=== PATIENT | female | born 1955 | race Caucasian/White ===

== ENCOUNTER 2018-02-28 08:00 | Inpatient (IN) | payer MEDICARE, OTHER ==
[2018-03-31] MEDS ORDERED: Sodium Chloride 0.9% 10 ML Syringe FLUSH PRN (07:00)
[2018-03-31] MEDS ORDERED: Lactated Ringers 1,000 ML IV SCH (07:00)
[2018-03-31] MEDS ORDERED: Lidocaine 1%/Sod Bicarbonate in NS 8.4% 1 ML Syringe IDERM PRN (07:00)
[2018-03-31] MEDS ORDERED: Magnesium Hydroxide 400 MG/5 ML Susp 30 ML Cup PO PRN (07:05)
[2018-03-31] MEDS ORDERED: Ketorolac 15 MG/ML SDV IVPUSH PRN (07:05)
[2018-03-31] MEDS ORDERED: Bisacodyl 5 MG Tab PO PRN (07:05)
[2018-03-31] MEDS ORDERED: Morphine 2 MG/ML Syringe IVPUSH PRN (07:05)
[2018-03-31] MEDS ORDERED: Sennosides 8.6 MG Tab PO PRN (07:05)
[2018-03-31] MEDS ORDERED: Naloxone 0.4 MG/ML SDV IVPUSH PRN (07:05)
[2018-03-31] MEDS ORDERED: Acetaminophen/oxyCODONE 325-5 MG Tab PO PRN (07:05)
[2018-03-31] MEDS ORDERED: Scopolamine 1.5 MG Transdermal Patch TRDERM ONE (09:05)
[2018-03-31] MEDS ORDERED: Pregabalin 25 MG Cap PO SCH ×2 (09:30→11:30)
[2018-03-31] MEDS ORDERED: oxyCODONE ER 10 MG TAB.ER PO SCH ×2 (09:30→11:30)
[2018-03-31] MEDS ORDERED: Acetaminophen 325 MG Tab PO SCH ×2 (09:30→11:30)
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
[2018-03-31] MEDS ORDERED: Vancomycin 1 GM SDV ONE (10:42)
[2018-03-31] MEDS ORDERED: ceFAZolin 1 GM Vial ONE ×2 (10:42→10:46)
[2018-03-31] MEDS ORDERED: Iodine/Sodium Iodide 2% Tincture 30 ML Bottle ONE (10:42)
[2018-03-31] MEDS ORDERED: Bupivacaine 0.25% 30 ML SDV ONE (10:42)
[2018-03-31] MEDS ORDERED: Propofol 200 MG/20 ML SDV ONE (10:47)
[2018-03-31] MEDS ORDERED: fentaNYL 100 MCG/2 ML SDV ONE (10:47)
[2018-03-31] MEDS ORDERED: Midazolam 1 MG/ML 2 ML SDV ONE (10:47)
[2018-03-31] MEDS ORDERED: Bupivacaine 0.75% 30 ML SDV ONE (10:48)
[2018-03-31] MEDS: Morphine 8 MG, EPINEPHrine 0.3 MG, Cefuroxime 750 MG, Ketorolac 30 MG, Sodium Chloride ... ONE ×10 (13:35→17:18)
[2018-03-31] MEDS ORDERED: Ketorolac 30 MG/ML SDV ONE (13:38)
[2018-03-31] MEDS ORDERED: Ondansetron 4 MG/2 ML SDV ONE (13:38)
[2018-03-31] MEDS ORDERED: Lactated Ringers 1,000 ML ONE ×2 (13:57)
[2018-03-31] MEDS ORDERED: fentaNYL 100 MCG/2 ML SDV IVPUSH PRN (14:16)
[2018-03-31] MEDS ORDERED: HYDROmorphone 0.5 MG/0.5 ML Syringe IVPUSH PRN (14:16)
--- NOTE | 2018-03-31 14:16 | PCM.POSTAN ---
POST ANESTHESIA ASSESSMENT - MENTAL STATUS Mental Status: Alert, Oriented - VITAL SIGNS Pulse Rate: 80 SaO2: 95 Resp Rate: 14 Blood Pressure: 90/48 Temperature: 36.0 C - RESPIRATORY Respiratory Status: Respiratory Rate WNL, Airway Patent, O2 Saturation Stable, Supplemental Oxygen - CARDIOVASCULAR CV Status: Pulse Rate WNL, Blood Pressure Stable - GASTROINTESTINAL GI Status: No Symptoms - PAIN Pain Score: 0 - POST OP HYDRATION Hydration Status: Adequate & Stable
[2018-03-31] MEDS ORDERED: SUMAtriptan 50 MG Tab PO PRN (14:22)
--- NOTE | 2018-03-31 14:27 | PCM.OPNOTE ---
- General Post-Op/Procedure Note Date of Surgery/Procedure: 03/31/18 Operative Procedure(s): left total knee arthoplasty Pre Op Diagnosis: left knee osteoarthrosis Post-Op Diagnosis: Same Anesthesia Technique: Local, MAC, Spinal Primary Surgeon: Noble Munguia Anesthesia Provider: Terri Tolbert Treasury Accountant: Trinity Miner Treasury Accountant: Salome Mac EBL in mLs: 300 Complications: None Condition: Good Free Text/Narrative:: size 4 size 3 3 9mm 29x9
[2018-03-31] MEDS ORDERED: Ropivacaine 0.5% 5 MG/ML 30 ML SDV ONE (15:00)
[2018-03-31] MEDS ORDERED: EPINEPHrine 1 MG/ML SDV ONE (15:00)
--- NOTE | 2018-03-31 15:47 | CR ---
Left knee: AP and lateral views left knee were obtained. Comparison: No previous study. Knee prosthesis is seen. Soft tissue air is noted from the surgical procedure. Prosthetic components are aligned. Underlying bony structures are intact. Impression: 1. Satisfactory postop radiographic appearance recently placed left knee prosthesis. Diagnostic code #2
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
--- NOTE | 2018-03-31 17:31 | PCM.SN ---
- Free Text/Narrative Note: Left selective femoral nerve block at the adductor canal for post-procedure pain control Time Out: 1504 Start: 1506 End: 1510 Chart reviewed. Consent signed. Questions answered. Appropriate monitors applied. Time out performed. Left mid-shaft femur evaluated with ultrasound. Scanning medially femur, I was able to identify the femoral artery in the adductor canal. The saphenous nerve was lateral to the artery. The skin was prepped lateral to the ultrasound probe with chlorahexadine. The 21ga 4 insulated block needle was inserted under direct ultrasound guidance into the adductor canal. 20mL of 0.5% ropivacaine with 1:200,000 epinephrine was injected cirmcumferentially about the nerve with intermittent negative aspiration every 5mL. Patient tolerated the procedure well. See pictures on progress note and vital signs on nurses notes. Block completed postoperatively. Jaya Guerra CRNA
[2018-03-31] MEDS: Ondansetron 4 MG/2 ML SDV IVPUSH PRN (17:41)
[2018-03-31] MEDS: ceFAZolin 2 GM in Premix Bag 1 BAG IV SCH (21:55)
[2018-03-31] MEDS: Famotidine 20 MG Tab PO SCH (21:55)
[2018-03-31] MEDS: Docusate Sodium 100 MG Cap PO SCH (21:55)
[2018-04-01] MEDS: ceFAZolin 2 GM in Premix Bag 1 BAG IV SCH ×2 (04:22→12:11)
--- NOTE | 2018-04-01 07:51 | PCM.CONSN ---
- General Info Date of Service: 04/01/18 Admission Dx/Problem (Free Text): Admission Diagnosis/Problem Admission Diagnosis/Problem Osteoarthritis of knee Subjective Update: In to see Gini. She is doing well overall. She reports that her highest pain score was a 5/10 today for which she received Percocet. She is tolerating the pain medications. She does endorse some nausea but no vomiting. Occasional dizziness but she does report she hasn't had much to eat/drink since surgery. She reports sensation is intact for her LLE. Denies chest pain, dyspnea, dysuria. Functional Status: Reports: Pain Controlled, Tolerating Diet, Urinating - Review of Systems General: Reports: No Symptoms, Appetite (decreased post-op ). Denies: Fever, Weakness HEENT: Reports: No Symptoms Pulmonary: Reports: No Symptoms. Denies: Shortness of Breath, Cough Cardiovascular: Reports: No Symptoms. Denies: Chest Pain, Palpitations, Edema Gastrointestinal: Reports: No Symptoms, Nausea. Denies: Abdominal Pain, Constipation, Diarrhea, Vomiting Genitourinary: Reports: No Symptoms. Denies: Dysuria, Frequency Musculoskeletal: Reports: Other (knee pain s/p left TKA POD #1 ) Skin: Reports: No Symptoms Neurological: Reports: Dizziness (mild ). Denies: Confusion, Headache, Numbness , Tingling Psychiatric: Reports: No Symptoms. Denies: Confusion, Depression - Patient Data Vitals - Most Recent: Last Vital Signs Temp 97.7 F 04/01/18 04:34 Pulse 73 04/01/18 04:34 Resp 16 04/01/18 04:34 BP 105/73 04/01/18 04:34 Pulse Ox 96 04/01/18 07:05 Weight - Most Recent: 154 lb 14.4 oz I&O - Last 24 Hours: Intake & Output 03/31/18 04/01/18 04/01/18 22:59 06:59 14:59 Intake Total 440 130 Output Total 500 Balance 440 -370 Lab Results Last 24 Hours: Laboratory Results - last 24 hr 04/01/18 Range/Units 06:20 WBC 8.00 (3.98-10.04) K/mm3 RBC 3.89 L (3.98-5.22) M/mm3 Hgb 11.4 (11.2-15.7) gm/L Hct 36.2 (34.1-44.9) % MCV 93.1 (79.4-94.8) fl MCH 29.3 (25.6-32.2) pg MCHC 31.5 L (32.2-35.5) g/dl RDW Std Deviation 49.0 H (36.4-46.3) fL Plt Count 236 (182-369) K/mm3 MPV 10.3 (9.4-12.3) fl Med Orders - Current: Current Medications Aspirin (Ecotrin) 325 mg PO BID [facility] Bisacodyl (Dulcolax) 5 mg PO DAILY PRN PRN Reason: Constipation Calcium Carbonate/Glycine (Calcium Carbonate) 1,200 mg PO DAILY [facility] Cholecalciferol (Vitamin D3) 5,000 unit PO DAILY [facility] Cyclobenzaprine HCl (Flexeril) 10 mg PO TID PRN PRN Reason: Spasms Docusate Sodium (Colace) 100 mg PO BID [facility] Last Admin: 03/31/18 21:55 Dose: 100 mg Famotidine (Pepcid) 20 mg PO Q12H [facility] Last Admin: 03/31/18 21:55 Dose: 20 mg Cefazolin Sodium/Dextrose 2 gm (/ Premix) 50 mls @ 100 mls/hr IV Q8H [facility] Stop: 04/01/18 12:59 Last Admin: 04/01/18 04:22 Dose: 100 mls/hr Ketorolac Tromethamine (Toradol) 15 mg IVPUSH Q6H PRN PRN Reason: Pain Magnesium Hydroxide (Milk Of Magnesia) 30 ml PO BID PRN PRN Reason: Constipation Magnesium Oxide (Magnesium Oxide) 400 mg PO DAILY [facility] Morphine Sulfate (Morphine) 2 mg IVPUSH Q2H PRN PRN Reason: Breakthrough Pain Naloxone HCl (Narcan) 0.1 mg IVPUSH Q5M PRN PRN Reason: Oversedation Ondansetron HCl (Zofran) 4 mg IVPUSH Q6H PRN PRN Reason: Nausea/Vomiting Last Admin: 03/31/18 17:41 Dose: 4 mg Oxycodone/Acetaminophen (Percocet 325-5 Mg) 1 - 2 tab PO Q4H PRN PRN Reason: Pain Last Admin: 04/01/18 04:40 Dose: 1 tab Senna (Senna) 8.6 mg PO BID PRN PRN Reason: Constipation Sertraline HCl (Zoloft) 25 mg PO DAILY [facility] Sodium Chloride (Saline Flush) 10 ml FLUSH ASDIRECTED PRN PRN Reason: Keep Vein Open Spironolactone (Aldactone) 50 mg PO DAILY [facility] Sumatriptan Succinate (Imitrex) 100 mg PO ASDIRECTED PRN PRN Reason: migraines Discontinued Medications Acetaminophen (Tylenol) 975 mg PO ONETIME [facility] Stop: 03/31/18 09:31 Last Admin: 03/31/18 11:45 Dose: 975 mg Acetaminophen (Tylenol) 975 mg PO ONETIME [facility] Stop: 03/31/18 11:31 Bupivacaine HCl (Marcaine 0.25%) Confirm Administered Dose 30 ml .ROUTE .STK- MED ONE Stop: 03/31/18 10:43 Last Admin: 03/31/18 13:36 Dose: 30 ml Bupivacaine HCl (Sensorcaine-Mpf 0.75%) Confirm Administered Dose 30 ml .ROUTE .STK-MED ONE Stop: 03/31/18 10:49 Cefazolin Sodium (Ancef) Confirm Administered Dose 2 gm .ROUTE .STK-MED ONE Stop: 03/31/18 10:43 Last Admin: 03/31/18 13:29 Dose: 2 gm Cefazolin Sodium (Ancef) Confirm Administered Dose 2 gm .ROUTE .STK-MED ONE Stop: 03/31/18 10:47 Morphine Sulfate 8 mg/Epinephrine HCl 0.3 mg/Cefuroxime Sodium 750 mg/Ketorolac Tromethamine 30 mg/Sodium Chloride 27.9 ml 0 mg .XX ONETIME ONE Stop: 03/31/18 12:31 Last Admin: 03/31/18 17:18 Dose: Not Given Epinephrine HCl (Adrenalin) Confirm Administered Dose 1 mg .ROUTE .STK-MED ONE Stop: 03/31/18 15:01 Fentanyl (Sublimaze) Confirm Administered Dose 100 mcg .ROUTE .STK-MED ONE Stop: 03/31/18 10:48 Fentanyl (Sublimaze) 50 mcg IVPUSH Q5M PRN PRN Reason: pain Stop: 03/31/18 18:00 Hydromorphone HCl (Dilaudid) 0.5 mg IVPUSH ONETIME PRN PRN Reason: Pain (severe 7-10) Lactated Ringer's (Ringers, Lactated) 1,000 mls @ 125 mls/hr IV ASDIRECTED [facility] Last Admin: 03/31/18 10:05 Dose: 125 mls/hr Lactated Ringer's (Ringers, Lactated) Confirm Administered Dose 1,000 mls @ as directed .ROUTE .STK-MED ONE Stop: 03/31/18 13:58 Lactated Ringer's (Ringers, Lactated) Confirm Administered Dose 1,000 mls @ as directed .ROUTE .STK-MED ONE Stop: 03/31/18 13:58 Iodine (Iodine 2% Mild Tincture) Confirm Administered Dose 30 ml .ROUTE .STK- MED ONE Stop: 03/31/18 10:43 Last Admin: 03/31/18 13:26 Dose: 18 ml Ketorolac Tromethamine (Toradol) Confirm Administered Dose 30 mg .ROUTE .STK- MED ONE Stop: 03/31/18 13:39 Lidocaine/Sodium Bicarbonate (Buffered Lidocaine 1% In Ns 8.4%) 0.25 ml IDERM ONETIME PRN PRN Reason: Prior to IV Start Stop: 03/31/18 18:00 Last Admin: 03/31/18 10:05 Dose: 0.25 ml Midazolam HCl (Versed 1 Mg/Ml) Confirm Administered Dose 2 mg .ROUTE .STK-MED ONE Stop: 03/31/18 10:48 Ondansetron HCl (Zofran) Confirm Administered Dose 4 mg .ROUTE .STK-MED ONE Stop: 03/31/18 13:39 Oxycodone HCl (Oxycontin) 10 mg PO ONETIME [facility] Stop: 03/31/18 09:31 Last Admin: 03/31/18 11:44 Dose: 10 mg Oxycodone HCl (Oxycontin) 10 mg PO ONETIME [facility] Stop: 03/31/18 11:31 Pregabalin (Lyrica) 50 mg PO ONETIME [facility] Stop: 03/31/18 09:31 Last Admin: 03/31/18 11:43 Dose: 50 mg Pregabalin (Lyrica) 50 mg PO ONETIME [facility] Stop: 03/31/18 11:31 Propofol (Diprivan 20 Ml) Confirm Administered Dose 600 mg .ROUTE .STK-MED ONE Stop: 03/31/18 10:48 Ropivacaine (Naropin 0.5%) Confirm Administered Dose 30 ml .ROUTE .STK-MED ONE Stop: 03/31/18 15:01 Scopolamine (Transderm-Scop) 1.5 mg TRDERM Q72H ONE Stop: 03/31/18 09:06 Last Admin: 03/31/18 10:18 Dose: 1.5 mg Tranexamic Acid (Cyklokapron) Confirm Administered Dose 1,000 mg .ROUTE .STK- MED ONE Stop: 03/31/18 10:43 Last Admin: 03/31/18 13:42 Dose: 1,000 mg Vancomycin HCl (Vancomycin) Confirm Administered Dose 1 gm .ROUTE .STK-MED ONE Stop: 03/31/18 10:43 Last Admin: 03/31/18 13:42 Dose: 1 gm - Exam Quality Assessment: DVT Prophylaxis General: Alert, Oriented, Cooperative, No Acute Distress HEENT: Pupils Equal, Pupils Reactive, EOMI, Mucous Membr. Moist/[place] Neck: Supple Lungs: Clear to Auscultation, Normal Respiratory Effort Cardiovascular: Regular Rate, Regular Rhythm GI/Abdominal Exam: Normal Bowel Sounds, Soft, Non-Tender, No Distention (Female) Exam: Deferred Extremities: Normal Inspection, Limited Range of Motion (s/p left TKA POD #1 ), Other (Knee pain ). No: Pedal Edema Peripheral Pulses: 1+: Posterior Tibial (L), Posterior Tibial (R), Dorsalis Pedis (L), Dorsalis Pedis (R) Skin: Warm, Dry, Intact Wound/Incisions: Dressing Dry and Intact Neurological: No New Focal Deficit, Cranial Nerves Intact (grossly ) Psy/Mental Status: Alert, Normal Affect, Normal Mood Consult PN Assessment/Plan POD#: 1 Procedures: Procedures ARTHROSCOP ROTATOR CUFF REPR (11/29/16) ASSAY OF PREALBUMIN (03/10/18) ASSAY THYROID STIM HORMONE (09/09/17) BL SMEAR W/DIFF WBC COUNT (03/25/18) C-REACTIVE PROTEIN (03/11/18) COMP SCREEN MAMMOGRAM ADD-ON (12/08/15) COMPLETE CBC AUTOMATED (03/25/18) COMPLETE CBC W/AUTO DIFF WBC (11/15/16) COMPREHEN METABOLIC PANEL (03/25/18) DXA BONE DENSITY AXIAL (09/24/17) INFLUENZA ASSAY W/OPTIC (11/11/14) LIPID PANEL (03/10/18) MR-STAPH DNA AMP PROBE (11/29/16) MRI JOINT UPR EXTREM W/O DYE (11/07/16) PROTHROMBIN TIME (03/10/18) RBC SED RATE AUTOMATED (03/25/18) ROUTINE VENIPUNCTURE (03/25/18) THROMBOPLASTIN TIME PARTIAL (03/10/18) URINALYSIS AUTO W/SCOPE (03/10/18) X-RAY EXAM CHEST 2 VIEWS (03/10/18) (1) Status post knee replacement SNOMED Code(s): 709020096 Code(s): Z96.659 - PRESENCE OF UNSPECIFIED ARTIFICIAL KNEE JOINT Priority: High Current Visit: Yes Qualifiers: Laterality: left Qualified Code(s): Z96.652 - Presence of left artificial knee joint (2) Osteoarthritis SNOMED Code(s): 300434467 Code(s): M19.90 - UNSPECIFIED OSTEOARTHRITIS, UNSPECIFIED SITE Priority: High Current Visit: Yes Qualifiers: Osteoarthritis location: knee Osteoarthritis type: unspecified Laterality : bilateral Qualified Code(s): M17.0 - Bilateral primary osteoarthritis of knee (3) Anxiety SNOMED Code(s): 86049815 Code(s): F41.9 - ANXIETY DISORDER, UNSPECIFIED Priority: Medium Current Visit: No (4) Migraine SNOMED Code(s): 88477773 Code(s): G43.909 - MIGRAINE, UNSP, NOT INTRACTABLE, WITHOUT STATUS MIGRAINOSUS Priority: Low Current Visit: No (5) Hyperlipidemia SNOMED Code(s): 54211014 Code(s): E78.5 - HYPERLIPIDEMIA, UNSPECIFIED Priority: Low Current Visit : No (6) Hypokalemia SNOMED Code(s): 41696158 Code(s): E87.6 - HYPOKALEMIA Priority: Low Current Visit: No Problem List Initiated/Reviewed/Updated: Yes Plan: I/P: Acute: S/P left total knee arthroplasty - post-operative day 1 -DVT prophylaxis and pain management per primary care team -PT/OT -IS/RT -Monitor oxygen saturation -Titrate oxygen as needed -Vital signs stable -Monitor labs -pre-op Hgb 15.9; post-op 11.4 Post op nausea -antiemetics per primary care team -encouraged adequate Osteoarthritis of knees, bilateral -Pain management per primary care team Chronic: Hypokalemia Anxiety Migraines Hyperlipidemia OA Right rotator cuff tear with repair Plan: CM for discharge planning PT/OT GI prophylaxis: Pepcid DVT/PE prophylaxis: SARAH Baldwins, ASA BID Home medications as indicated Other orders as listed above Routine AM labs She is a full code. Her PCP is Mai Daly PA-C. Thank you for allowing us to participate in the care of this patient! From a hospitalist standpoint, she is stable. Discharge decision per primary care team.
[2018-04-01] MEDS: Famotidine 20 MG Tab PO SCH (08:33)
[2018-04-01] MEDS: Docusate Sodium 100 MG Cap PO SCH (08:33)
[2018-04-01] MEDS: Cyclobenzaprine 10 MG Tab PO PRN ×2 (08:39→16:20)
[2018-04-01] MEDS: Ondansetron 4 MG/2 ML SDV IVPUSH PRN ×2 (08:39→13:46)
--- NOTE | 2018-04-01 08:49 | PCM.SURGPN ---
- General Info Date of Service: 04/01/18 POD#: 1 Functional Status: Reports: Pain Controlled, Tolerating Diet, Ambulating, Urinating, Incentive Spirometry, Other (The pt reports hx nausea last evening and this has improved some.) - Patient Data Vitals - Most Recent: Last Vital Signs Temp 97.7 F 04/01/18 04:34 Pulse 73 04/01/18 04:34 Resp 16 04/01/18 04:34 BP 105/73 04/01/18 04:34 Pulse Ox 96 04/01/18 07:05 Weight - Most Recent: 154 lb 14.4 oz I&O - Last 24 Hours: Intake & Output 03/31/18 04/01/18 04/01/18 22:59 06:59 14:59 Intake Total 440 130 Output Total 500 Balance 440 -370 Lab Results Last 24 Hrs: Laboratory Results - last 24 hr 04/01/18 04/01/18 Range/Units 06:20 06:20 WBC 8.00 (3.98-10.04) K/mm3 RBC 3.89 L (3.98-5.22) M/mm3 Hgb 11.4 (11.2-15.7) gm/L Hct 36.2 (34.1-44.9) % MCV 93.1 (79.4-94.8) fl MCH 29.3 (25.6-32.2) pg MCHC 31.5 L (32.2-35.5) g/dl RDW Std Deviation 49.0 H (36.4-46.3) fL Plt Count 236 (182-369) K/mm3 MPV 10.3 (9.4-12.3) fl Sodium 135 L (136-145) mEq/L Potassium 4.0 (3.5-5.1) mEq/L Chloride 103 (98-107) mEq/L Carbon Dioxide 28 (21-32) mEq/L Anion Gap 8.0 (5-15) BUN 14 (7-18) mg/dL Creatinine 0.8 (0.55-1.02) mg/dL Est Cr Clr Drug Dosing 63.09 mL/min Estimated GFR (MDRD) > 60 (>60) mL/min BUN/Creatinine Ratio 17.5 (14-18) Glucose 109 (80-115) mg/dL Calcium 8.5 (8.5-10.1) mg/dL Total Bilirubin 0.4 (0.2-1.0) mg/dL AST 16 (15-37) U/L ALT 21 (14-59) U/L Alkaline Phosphatase 57 (46-116) U/L Total Protein 5.6 L (6.4-8.2) g/dl Albumin 2.7 L (3.4-5.0) g/dl Globulin 2.9 gm/dL Albumin/Globulin Ratio 0.9 L (1-2) Med Orders - Current: Current Medications Bisacodyl (Dulcolax) 5 mg PO DAILY PRN PRN Reason: Constipation Calcium Carbonate/Glycine (Calcium Carbonate) 1,200 mg PO DAILY [facility] Last Admin: 04/01/18 08:33 Dose: 1,200 mg Cholecalciferol (Vitamin D3) 5,000 unit PO DAILY [facility] Last Admin: 04/01/18 08:33 Dose: 5,000 unit Cyclobenzaprine HCl (Flexeril) 10 mg PO TID PRN PRN Reason: Spasms Last Admin: 04/01/18 08:39 Dose: 10 mg Docusate Sodium (Colace) 100 mg PO BID [facility] Last Admin: 04/01/18 08:33 Dose: 100 mg Famotidine (Pepcid) 20 mg PO Q12H [facility] Last Admin: 04/01/18 08:33 Dose: 20 mg Cefazolin Sodium/Dextrose 2 gm (/ Premix) 50 mls @ 100 mls/hr IV Q8H [facility] Stop: 04/01/18 12:59 Last Admin: 04/01/18 04:22 Dose: 100 mls/hr Ketorolac Tromethamine (Toradol) 15 mg IVPUSH Q6H PRN PRN Reason: Pain Last Admin: 04/01/18 08:33 Dose: 15 mg Magnesium Hydroxide (Milk Of Magnesia) 30 ml PO BID PRN PRN Reason: Constipation Magnesium Oxide (Magnesium Oxide) 400 mg PO DAILY [facility] Last Admin: 04/01/18 08:32 Dose: 400 mg Morphine Sulfate (Morphine) 2 mg IVPUSH Q2H PRN PRN Reason: Breakthrough Pain Naloxone HCl (Narcan) 0.1 mg IVPUSH Q5M PRN PRN Reason: Oversedation Ondansetron HCl (Zofran) 4 mg IVPUSH Q6H PRN PRN Reason: Nausea/Vomiting Last Admin: 04/01/18 08:39 Dose: 4 mg Oxycodone/Acetaminophen (Percocet 325-5 Mg) 1 - 2 tab PO Q4H PRN PRN Reason: Pain Last Admin: 04/01/18 04:40 Dose: 1 tab Rivaroxaban (Xarelto) 10 mg PO DAILY [facility] Last Admin: 04/01/18 08:34 Dose: 10 mg Senna (Senna) 8.6 mg PO BID PRN PRN Reason: Constipation Sertraline HCl (Zoloft) 25 mg PO DAILY [facility] Last Admin: 04/01/18 08:32 Dose: 25 mg Sodium Chloride (Saline Flush) 10 ml FLUSH ASDIRECTED PRN PRN Reason: Keep Vein Open Spironolactone (Aldactone) 50 mg PO DAILY [facility] Last Admin: 04/01/18 08:33 Dose: 50 mg Sumatriptan Succinate (Imitrex) 100 mg PO ASDIRECTED PRN PRN Reason: migraines Discontinued Medications Acetaminophen (Tylenol) 975 mg PO ONETIME [facility] Stop: 03/31/18 09:31 Last Admin: 03/31/18 11:45 Dose: 975 mg Acetaminophen (Tylenol) 975 mg PO ONETIME [facility] Stop: 03/31/18 11:31 Aspirin (Ecotrin) 325 mg PO BID [facility] Bupivacaine HCl (Marcaine 0.25%) Confirm Administered Dose 30 ml .ROUTE .STK- MED ONE Stop: 03/31/18 10:43 Last Admin: 03/31/18 13:36 Dose: 30 ml Bupivacaine HCl (Sensorcaine-Mpf 0.75%) Confirm Administered Dose 30 ml .ROUTE .STK-MED ONE Stop: 03/31/18 10:49 Cefazolin Sodium (Ancef) Confirm Administered Dose 2 gm .ROUTE .STK-MED ONE Stop: 03/31/18 10:43 Last Admin: 03/31/18 13:29 Dose: 2 gm Cefazolin Sodium (Ancef) Confirm Administered Dose 2 gm .ROUTE .STK-MED ONE Stop: 03/31/18 10:47 Morphine Sulfate 8 mg/Epinephrine HCl 0.3 mg/Cefuroxime Sodium 750 mg/Ketorolac Tromethamine 30 mg/Sodium Chloride 27.9 ml 0 mg .XX ONETIME [facility] Stop: 03/31/18 12:31 Last Admin: 03/31/18 17:18 Dose: Not Given Epinephrine HCl (Adrenalin) Confirm Administered Dose 1 mg .ROUTE .STK-MED ONE Stop: 03/31/18 15:01 Fentanyl (Sublimaze) Confirm Administered Dose 100 mcg .ROUTE .STK-MED ONE Stop: 03/31/18 10:48 Fentanyl (Sublimaze) 50 mcg IVPUSH Q5M PRN PRN Reason: pain Stop: 03/31/18 18:00 Hydromorphone HCl (Dilaudid) 0.5 mg IVPUSH ONETIME PRN PRN Reason: Pain (severe 7-10) Lactated Ringer's (Ringers, Lactated) 1,000 mls @ 125 mls/hr IV ASDIRECTED [facility] Last Admin: 03/31/18 10:05 Dose: 125 mls/hr Lactated Ringer's (Ringers, Lactated) Confirm Administered Dose 1,000 mls @ as directed .ROUTE .STK-MED ONE Stop: 03/31/18 13:58 Lactated Ringer's (Ringers, Lactated) Confirm Administered Dose 1,000 mls @ as directed .ROUTE .STK-MED ONE Stop: 03/31/18 13:58 Iodine (Iodine 2% Mild Tincture) Confirm Administered Dose 30 ml .ROUTE .STK- MED ONE Stop: 03/31/18 10:43 Last Admin: 03/31/18 13:26 Dose: 18 ml Ketorolac Tromethamine (Toradol) Confirm Administered Dose 30 mg .ROUTE .STK- MED ONE Stop: 03/31/18 13:39 Lidocaine/Sodium Bicarbonate (Buffered Lidocaine 1% In Ns 8.4%) 0.25 ml IDERM ONETIME PRN PRN Reason: Prior to IV Start Stop: 03/31/18 18:00 Last Admin: 03/31/18 10:05 Dose: 0.25 ml Midazolam HCl (Versed 1 Mg/Ml) Confirm Administered Dose 2 mg .ROUTE .STK-MED ONE Stop: 03/31/18 10:48 Ondansetron HCl (Zofran) Confirm Administered Dose 4 mg .ROUTE .STK-MED ONE Stop: 03/31/18 13:39 Oxycodone HCl (Oxycontin) 10 mg PO ONETIME [facility] Stop: 03/31/18 09:31 Last Admin: 03/31/18 11:44 Dose: 10 mg Oxycodone HCl (Oxycontin) 10 mg PO ONETIME [facility] Stop: 03/31/18 11:31 Pregabalin (Lyrica) 50 mg PO ONETIME [facility] Stop: 03/31/18 09:31 Last Admin: 03/31/18 11:43 Dose: 50 mg Pregabalin (Lyrica) 50 mg PO ONETIME [facility] Stop: 03/31/18 11:31 Propofol (Diprivan 20 Ml) Confirm Administered Dose 600 mg .ROUTE .STK-MED ONE Stop: 03/31/18 10:48 Ropivacaine (Naropin 0.5%) Confirm Administered Dose 30 ml .ROUTE .STK-MED ONE Stop: 03/31/18 15:01 Scopolamine (Transderm-Scop) 1.5 mg TRDERM Q72H [facility] Stop: 03/31/18 09:06 Last Admin: 03/31/18 10:18 Dose: 1.5 mg Tranexamic Acid (Cyklokapron) Confirm Administered Dose 1,000 mg .ROUTE .STK- MED ONE Stop: 03/31/18 10:43 Last Admin: 03/31/18 13:42 Dose: 1,000 mg Vancomycin HCl (Vancomycin) Confirm Administered Dose 1 gm .ROUTE .STK-MED ONE Stop: 03/31/18 10:43 Last Admin: 03/31/18 13:42 Dose: 1 gm - Exam Wound/Incisions: Dressing Dry and Intact General: Alert, Cooperative, No Acute Distress Lungs: Normal Respiratory Effort Extremities: Other (NVS intact for BLE. Homans negative.) - Problem List Review Problem List Initiated/Reviewed/Updated: Yes - My Orders Last 24 Hours: Active Orders 24 hr Category Date Time Status Admission Status [Patient Status] [ADT] Routine ADT 03/31/18 16:47 Active Cooling Warming Measures [RC] ASDIRECTED Care 03/31/18 14:16 Inactive Notify Provider [RC] ASDIRECTED Care 03/31/18 14:16 Active Pulse Oximetry [RC] ASDIRECTED Care 03/31/18 14:16 Active Ready for Discharge [RC] PER UNIT ROUTINE Care 04/01/18 07:46 Active Regular Diet [DIET] Diet 03/31/18 Lunch Active Calcium Carbonate Med 04/01/18 09:00 Active 1,200 mg PO DAILY Cholecalciferol (Vitamin D3) [Vitamin D3] Med 04/01/18 09:00 Active 5,000 unit PO DAILY Docusate Sodium [Colace] Med 03/31/18 21:00 Active 100 mg PO BID Famotidine [Pepcid] Med 03/31/18 21:00 Active 20 mg PO Q12H Magnesium Oxide Med 04/01/18 09:00 Active 400 mg PO DAILY Rivaroxaban [Xarelto] Med 04/01/18 09:00 Active 10 mg PO DAILY SUMAtriptan [Imitrex] Med 03/31/18 14:22 Active 100 mg PO ASDIRECTED PRN Sertraline [Zoloft] Med 04/01/18 09:00 Active 25 mg PO DAILY Spironolactone [Aldactone] Med 04/01/18 09:00 Active 50 mg PO DAILY ceFAZolin [Ancef] 2 gm Med 03/31/18 20:30 Active Premix Bag 1 bag IV Q8H Medication Orders Bisacodyl (Dulcolax) 5 mg PO DAILY PRN PRN Reason: Constipation Calcium Carbonate/Glycine (Calcium Carbonate) 1,200 mg PO DAILY [facility] Last Admin: 04/01/18 08:33 Dose: 1,200 mg Cholecalciferol (Vitamin D3) 5,000 unit PO DAILY [facility] Last Admin: 04/01/18 08:33 Dose: 5,000 unit Cyclobenzaprine HCl (Flexeril) 10 mg PO TID PRN PRN Reason: Spasms Last Admin: 04/01/18 08:39 Dose: 10 mg Docusate Sodium (Colace) 100 mg PO BID [facility] Last Admin: 04/01/18 08:33 Dose: 100 mg Admin: 03/31/18 21:55 Dose: 100 mg Famotidine (Pepcid) 20 mg PO Q12H [facility] Last Admin: 04/01/18 08:33 Dose: 20 mg Admin: 03/31/18 21:55 Dose: 20 mg Cefazolin Sodium/Dextrose 2 gm (/ Premix) 50 mls @ 100 mls/hr IV Q8H [facility] Stop: 04/01/18 12:59 Last Admin: 04/01/18 04:22 Dose: 100 mls/hr Infusion: 03/31/18 22:25 Dose: 100 mls/hr Admin: 03/31/18 21:55 Dose: 100 mls/hr Ketorolac Tromethamine (Toradol) 15 mg IVPUSH Q6H PRN PRN Reason: Pain Last Admin: 04/01/18 08:33 Dose: 15 mg Magnesium Hydroxide (Milk Of Magnesia) 30 ml PO BID PRN PRN Reason: Constipation Magnesium Oxide (Magnesium Oxide) 400 mg PO DAILY [facility] Last Admin: 04/01/18 08:32 Dose: 400 mg Morphine Sulfate (Morphine) 2 mg IVPUSH Q2H PRN PRN Reason: Breakthrough Pain Naloxone HCl (Narcan) 0.1 mg IVPUSH Q5M PRN PRN Reason: Oversedation Ondansetron HCl (Zofran) 4 mg IVPUSH Q6H PRN PRN Reason: Nausea/Vomiting Last Admin: 04/01/18 08:39 Dose: 4 mg Admin: 03/31/18 17:41 Dose: 4 mg Oxycodone/Acetaminophen (Percocet 325-5 Mg) 1 - 2 tab PO Q4H PRN PRN Reason: Pain Last Admin: 04/01/18 04:40 Dose: 1 tab Rivaroxaban (Xarelto) 10 mg PO DAILY [facility] Last Admin: 04/01/18 08:34 Dose: 10 mg Senna (Senna) 8.6 mg PO BID PRN PRN Reason: Constipation Sertraline HCl (Zoloft) 25 mg PO DAILY [facility] Last Admin: 04/01/18 08:32 Dose: 25 mg Sodium Chloride (Saline Flush) 10 ml FLUSH ASDIRECTED PRN PRN Reason: Keep Vein Open Spironolactone (Aldactone) 50 mg PO DAILY [facility] Last Admin: 04/01/18 08:33 Dose: 50 mg Sumatriptan Succinate (Imitrex) 100 mg PO ASDIRECTED PRN PRN Reason: migraines - Assessment Assessment (Free Text/Narrative):: POD#1 - left TKA - Plan Plan (Free Text/Narrative):: 1. Hgb 11.4. 2. Xarelto for VTE prophylaxis. SCDs, TEDs. 3. Outpatient P.T. 4. Discharge to home today. The pt will have the assistance of her and daughter. The pt's case was discussed with Dr. Munguia.
[2018-04-01] MEDS ORDERED: Calcium Carbonate 600 MG Tab PO SCH (09:00)
[2018-04-01] MEDS ORDERED: Cholecalciferol (Vitamin D3) 5,000 UNIT Tab PO SCH (09:00)
[2018-04-01] MEDS ORDERED: Sertraline 25 MG Tab PO SCH (09:00)
[2018-04-01] MEDS ORDERED: Rivaroxaban 10 MG Tab PO SCH (09:00)
[2018-04-01] MEDS ORDERED: Magnesium Oxide 400 MG Tab PO SCH (09:00)
[2018-04-01] MEDS ORDERED: Spironolactone 25 MG Tab PO SCH (09:00)
[2018-04-01] MEDS ORDERED: Aspirin 325 MG Tab.EC PO SCH (09:00)
--- NOTE | 2018-04-01 09:11 | PCM48HPAN ---
Post Anesthesia Note - EVALUATION WITHIN 48HRS OF ANESTHETIC Vital Signs in Normal Range: Yes Patient Participated in Evaluation: Yes Respiratory Function Stable: Yes Airway Patent: Yes Cardiovascular Function Stable: Yes Hydration Status Stable: Yes Pain Control Satisfactory: Yes Nausea and Vomiting Control Satisfactory: Yes (Having some nausea this morning. Nothing yeasterday. ) Mental Status Recovered: Yes
[2018-04-01] MEDS ORDERED: Acetaminophen 325 MG Tab PO PRN (11:54)
[2018-04-01] MEDS ORDERED: Sodium Chloride 0.9% 500 ML IV ONE (13:37)
[2018-04-01] MEDS ORDERED: Pneumococcal Polyvalent-23 Vaccine 0.5 ML SDV IM ONE (16:06)
[2018-04-01 16:59] VITALS: BP 101/77
--- NOTE | 2018-04-04 14:07 | OR ---
DATE OF OPERATION: 03/31/2018 SURGEON: Noble Munguia MD OPERATION PERFORMED: Left total knee arthroplasty. PREOPERATIVE DIAGNOSIS: Left knee osteoarthrosis. POSTOPERATIVE DIAGNOSIS: Left knee osteoarthrosis. ANESTHESIA: Local MAC with spinal. ANESTHESIA PROVIDER: Terri Tolbert. ASSISTANTS: 1. Trinity Miner PA-C. 2. Salome Mac LPN. ESTIMATED BLOOD LOSS: 300 mL COMPLICATIONS: None. CONDITION: Stable. IMPLANTS: 1. Ginna size 4 press-fit CR femur. 2. [place] size 3 press-fit tibial base plate. 3. [place] size 3, 9 mm CS polyethylene insert. 4. Ginna size 29 x 9 mm press-fit patella. DESCRIPTION OF PROCEDURE: The patient was identified in the preop holding area. Proper site was marked and identified by the surgeon. The patient was taken back to the operating theater. After adequate anesthesia, the patient's left lower extremity had a nonsterile tourniquet applied and it was then sterilely prepped and draped in the usual sterile fashion. OR timeout was performed. The patient received 2 g IV Ancef. At this time, left lower extremity was exsanguinated. Tourniquet was insufflated to 300 mmHg. Standard medial parapatellar incision was made. Medial parapatellar arthrotomy was created. Deep fibers of the MCL were raised and anterior fat pad was resected. At this time, attention was turned to the patella. Patella measured 23, it was resected to a 14 for a 29 x 9 mm patella. Drill holes were then drilled and found to be in adequate position. The drill was then drilled in the distal femur and the intramedullary distal femoral cutting guide was then placed. An 8 mm was resected off the distal femur and was found to be an adequate resection. Sizing guide was placed. It was found to be a size 6 femur that was shown on the implant record at the beginning of this dictation. The drill holes were drilled for the epicondylar axis using [place]ites[place] line and epicondyles as reference. At this time, the 4-in-1 cutting block was placed. An anterior posterior and anterior and posterior chamfer cuts were then completed. The correct size box cut was then placed and the box cut was completed and found to be an adequate resection. Attention was turned to the tibia. The posterior medial lateral retractors were placed. The extramedullary tibial guide was placed. It was placed in the old footprint of the ACL. It was aligned with the center of the ankle and 0 degrees of slope, 9 mm was then resected off the unaffected lateral side. There was found to be an acceptable reduction. At this time, posterior osteophytes were removed along with medial and lateral meniscus. A trial implant was placed with a correct sized tibia that was mentioned at the beginning of the dictation. A Ginna size 3, 9 mm CS polyethylene was then placed. The patient's knee was brought through range of motion. The patella was tracking centrally and was stable to varus and valgus stress. Alignment was found to be roughly at 0 degrees. At this time, cement was mixed on the back table. The tibia was stamped and drilled in proper rotation. The universal tibial base plate was impacted into place. Next, the [place] size 4 press-fit CR femur was press-fit into place and the Ginna size 3, 9 mm CS polyethylene was placed. The patient's knee was brought into full extension. The patella was then press-fit in place at this time. Tourniquet was deflated. One liter dilute Betadine solution was irrigated through the knee along with 3 L of pulse lavage irrigation with Ancef. Periarticular injection was then completed. The patient's knee was brought through a range of motion. Knee was found to be stable to varus valgus stress, the patella was tracking centrally with full range of motion. At this time, a #2 barbed suture was used for closure of the medial parapatellar arthrotomy. Topical tranexamic acid was placed. 2-0 Vicryl was used subcutaneously, a running 3-0 Monocryl was used subcuticularly. The patient tolerated the procedure well and was sent to the PACU in stable condition. JENNIFER /[id number] ERICK
== END 2018-04-01 16:30 | disposition home or self-care (01) | DRG 470 ==
LOC: JD.MS 03-31 09:38 → EDSTATUS 03-31 12:45
PROVIDERS: ADMIT Orthopaedic Surgery; ATTEND Orthopaedic Surgery
PROC: 0SRD0JA Replacement of Left Knee Joint with Synthetic Substitute, Uncemented, Open Approach (ICD-10-PCS; principal; 2018-03-31)
PROC: 3E0T3BZ Introduction of Anesthetic Agent into Peripheral Nerves and Plexi, Percutaneous Approach (ICD-10-PCS; 2018-03-31)
PROC: 3E0234Z Introduction of Serum, Toxoid and Vaccine into Muscle, Percutaneous Approach (ICD-10-PCS; 2018-04-01)
DX: M17.0 Bilateral primary osteoarthritis of knee (principal); E87.6 Hypokalemia; R11.0 Nausea; F41.9 Anxiety disorder, unspecified; E78.5 Hyperlipidemia, unspecified; E78.00 Pure hypercholesterolemia, unspecified; Z79.899 Other long term (current) drug therapy; G43.909 Migraine, unspecified, not intractable, without status migrainosus; Z98.890 Other specified postprocedural states; Z23 Encounter for immunization
CPT/HCPCS: 01214; 36415; 64447; 73560-26-LT; 73560-LT; 80053; 85027; 87641; 90471; 90732; 97110-GP; 97116-GP; 97161-GP; 97165-GO; 97535-GO; A9270-GY; C1776; J0171; J0690; J0697; J1885; J2250; J2270; J2405; J2704; J2795; J3010; J3370; J3490; J7040; J7120

== ENCOUNTER 2019-07-07 08:39 | Day surgery (SDC) | payer MEDICARE, OTHER ==
[~2019-07-07 08:39] MED LIST: Lactated Ringers 1,000 ML IV SCH; Lidocaine 1%/Sod Bicarbonate in NS 8.4% 1 ML Syringe IDERM PRN; Sodium Chloride 0.9% 10 ML Syringe FLUSH PRN
[2019-07-07] MEDS ORDERED: Lidocaine 1% 4 ML ONE (09:05)
[2019-07-07] MEDS ORDERED: Propofol 200 MG/20 ML SDV ONE ×2 (09:05→11:26)
[2019-07-07] MEDS ORDERED: Midazolam 1 MG/ML 2 ML SDV ONE (09:05)
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
--- NOTE | 2019-07-07 11:49 | PCM48HPAN ---
Post Anesthesia Note - EVALUATION WITHIN 48HRS OF ANESTHETIC Vital Signs in Normal Range: Yes Patient Participated in Evaluation: Yes Respiratory Function Stable: Yes Airway Patent: Yes Cardiovascular Function Stable: Yes Hydration Status Stable: Yes Pain Control Satisfactory: Yes Nausea and Vomiting Control Satisfactory: Yes Mental Status Recovered: Yes Vital Signs: Last Vital Signs Temp 97.3 F 07/07/19 08:45 Pulse 70 07/07/19 08:45 Resp 16 07/07/19 08:45 BP 129/67 07/07/19 08:45 Pulse Ox 98 07/07/19 08:45 1144 114/63 73 12 94% 98.7
[2019-07-07 12:56] VITALS: BP 112/68; PULSE 70
--- NOTE | 2019-07-08 08:33 | OR ---
DATE OF OPERATION: 07/07/2019 SURGEON: Mina Olivares MD PREOPERATIVE DIAGNOSIS: Colorectal cancer screening. POSTOPERATIVE DIAGNOSIS: Diverticulosis, colorectal cancer screening. PROCEDURE: Screening colonoscopy. ANESTHESIA: MAC. FINDINGS: She had diverticulosis of the sigmoid colon. The remainder of her colonoscopy was completely unremarkable. She had no polyps. She had an excellent bowel prep. PATHOLOGY: None. ESTIMATED BLOOD LOSS: None. COMPLICATIONS: None. DISPOSITION: Stable at the end of procedure. INDICATION: Kaitlynn is a 64-year-old female, 10 years out from the last colonoscopy. She has no history of polyps. No family history of colon cancer. She was offered a screening colonoscopy per the standard of care. She was fully informed of the major risks, benefits, and alternatives of the procedure. These include, but are not limited to perforation of the colon, bleeding, the risks of anesthesia, and the possibly of further surgery among others. She gave an informed consent of what was done. DESCRIPTION OF PROCEDURE: Kaitlynn was brought to the gastro suite and placed in the left lateral decubitus position. She was given MAC. I performed a digital rectal exam. This was unremarkable. With copious lubrication, I introduced the colonoscope into the rectum. I advanced the scope keeping the lumen in view at all times. With gentle forward pressure, I reached the cecum and I documented the cecum photographically. I slowly investigated the mucosa of the colon from the cecum back to the anus and exam lasting 9 minutes. A thorough careful examination failed to demonstrate polyps. I only identified diverticulosis of the sigmoid colon. She had an excellent bowel prep. At the end of the procedure, the scope was withdrawn. She was awakened from anesthesia. Her exam time was 9 minutes. At the end of the procedure, she was awakened from anesthesia and moved to recovery in stable condition. PLAN: Based on her life expectancy, she should get a colonoscopy in about 10 years. OPERATION PERFORMED: MMODAL /[id number]
== END 2019-07-07 12:16 | disposition home or self-care (01) ==
LOC: JD.SDS 08:39
PROVIDERS: ATTEND Surgery
DX: Z12.11 Encounter for screening for malignant neoplasm of colon (principal); K57.30 Diverticulosis of large intestine without perforation or abscess without bleeding; E78.00 Pure hypercholesterolemia, unspecified; F41.9 Anxiety disorder, unspecified; G43.909 Migraine, unspecified, not intractable, without status migrainosus; M19.90 Unspecified osteoarthritis, unspecified site; Z79.899 Other long term (current) drug therapy
CPT/HCPCS: G0121; J2001; J2250; J2704; J7120